=== PATIENT | male | born 1990 | race African-American/Black ===

== ENCOUNTER 2017-11-19 04:36 | Emergency (ER) | payer BC ==
[~2017-11-19] VITALS: Ht 175.3 cm; Wt 77.3 kg
[~2017-11-19 04:36] MED LIST: CIPRO 500MG TA500 MG PO; NORCO 325 MG-7.1 TAB PO; PREDNISONE20 MG PO; PROVENTIL0.09 MG/A1 IH; VENTOLIN0.09 MG
[2017-11-19 04:38] VITALS: BP 158/78; TEMP 96.8
[2017-11-19] MEDS ORDERED: PROAIR HFA0.09 MG/AC IH (05:01)
[2017-11-19 05:34] VITALS: PULSE 65
== END 2017-11-19 05:34 | disposition home or self-care (01) ==
LOC: COL.ER 04:36
DX: J45.901 Unspecified asthma with (acute) exacerbation (principal)

== ENCOUNTER 2019-06-30 14:28 | Emergency (ER) | payer OTHER ==
[~2019-06-30] VITALS: Ht 175.3 cm; Wt 77.3 kg
[~2019-06-30 14:28] MED LIST changes: +PROAIR HFA0.09 MG/AC IH
[2019-06-30] MEDS ORDERED: PREDNISONE20 MG PO (16:42)
[2019-06-30 17:09] VITALS: BP 116/68; PULSE 89; TEMP 98.2
== END 2019-06-30 17:10 | disposition home or self-care (01) ==
LOC: COL.ER 14:28
DX: J45.901 Unspecified asthma with (acute) exacerbation (principal); Z88.0 Allergy status to penicillin; F17.210 Nicotine dependence, cigarettes, uncomplicated
CPT/HCPCS: J7512

== ENCOUNTER → 2021-01-27 | Outpatient (CLI) | payer OTHER ==
[~2021-01-27] MED LIST changes: +VALIUM 2MG T2 MG/TAB PO
== END ==
LOC: COL.RAD 11:34
DX: R22.2 Localized swelling, mass and lump, trunk (principal)

== ENCOUNTER → 2021-02-21 | Outpatient (CLI) | payer OTHER | LOC: COL.RAD 11:49 | DX: R22.2 Localized swelling, mass and lump, trunk (principal) ==

== ENCOUNTER 2021-02-22 10:01 | Emergency (ER) | payer OTHER ==
[~2021-02-22] VITALS: Ht 177.8 cm; Wt 72.7 kg
[~2021-02-22 10:01] MED LIST changes: -VALIUM 2MG T2 MG/TAB PO
[2021-02-22 10:11] VITALS: TEMP 98.1
[2021-02-22] MEDS ORDERED: VALIUM 2MG T2 MG/TAB PO (10:59)
[2021-02-22 11:11] VITALS: BP 118/65; PULSE 73
== END 2021-02-22 11:11 | disposition home or self-care (01) ==
LOC: COL.ER 10:01
DX: M54.5 Low back pain (principal); F17.210 Nicotine dependence, cigarettes, uncomplicated; Z88.0 Allergy status to penicillin

== ENCOUNTER → 2021-06-05 | Outpatient (CLI) | payer OTHER ==
[~2021-06-05] MED LIST changes: +VALIUM 2MG T2 MG/TAB PO
== END ==
LOC: COL.RAD 06:55
DX: M47.817 Spondylosis without myelopathy or radiculopathy, lumbosacral region (principal); M53.3 Sacrococcygeal disorders, not elsewhere classified